=== PATIENT | male | born 1950 | race African-American/Black ===

== ENCOUNTER 2024-11-18 00:14 | Inpatient (IN) | payer OTHER ==
[2024-11-18] MEDS ORDERED: Ketorolac Tromethamine 30 MG (1 mL) VIAL ONE (00:57)
[2024-11-18] MEDS ORDERED: Acetaminophen 500 MG TAB ONE (00:57)
[2024-11-18 01:06] LABS: #Basophils 0.03 10x3/uL (0.0-0.2); #Eosinophils 0.23 10x3/uL (0.0-0.5); #Monocytes 0.63 10x3/uL (0.0-1.1); #Neutrophils 1.76 10x3/uL (1.5-8.4); %Basophils 0.6 % (0.0-2.0); %Eosinophils 4.6 % (0.0-6.0); %Lymphocytes 46.3 % (18.0-47.0); %Monocytes 12.7 % (0.0-10.0); %Neutrophils 35.6 % (40.0-75.0); Hematocrit 31.7 % (38.8-50.0); Hemoglobin 10.3 g/dL (13.5-17.5); Mean Corpuscular Hemoglobin 32.1 pg (27.0-33.0); Mean Corpuscular Volume 98.8 fL (81.2-95.1); Platelet Count 183 10x3/uL (150-450); Red Blood Cell (RBC) Count 3.21 10x6/uL (4.32-5.72); White Blood Cell (WBC) Count 4.95 10x3/uL (3.5-10.5)
[2024-11-18 01:30] LABS: ALT (SGPT) 20 U/L (Less than 45); AST (SGOT) 31 U/L (11-34); Albumin 4.8 g/dL (3.1-4.5); Alkaline Phosphatase 43 U/L (40-110); Anion Gap 19 mmol/L (10-20); BUN (Urea Nitrogen) 15 mg/dL (8.4-25.7); Bilirubin, Total 0.5 mg/dL (0.3-1.2); Calc. Creatinine Clearance 0 mL/min (70-130); Calcium 9.4 mg/dL (7.8-10.44); Carbon Dioxide 24 mmol/L (23-31); Chloride 106 mmol/L (98-107); Globulin 2.3 g/dL (2.4-3.5); Glucose 102 mg/dL (83-110); Potassium 4.0 mmol/L (3.5-5.1); Sodium 145 mmol/L (136-145)
[2024-11-18 01:36] LABS: Troponin I Less than 0.010 ng/mL (< 0.028)
[2024-11-18] MEDS ORDERED: hydrALAZINE 20 MG/ML VIAL ONE ×2 (02:19→02:57)
[2024-11-18 04:42] VITALS: BMI 25.5
[2024-11-18] MEDS ORDERED: Nitroglycerin 0.4 MG TAB (25 Tab Bottle) SL PRN (05:38)
[2024-11-18] MEDS ORDERED: hydrALAZINE 20 MG/ML VIAL SLOW IVP PRN ×2 (06:03→10:34)
[2024-11-18 06:32] LABS: Troponin I 0.011 ng/mL (< 0.028)
[2024-11-18] MEDS: Aspirin 325 MG TAB PO SCH (07:29)
[2024-11-18 09:32] LABS: Troponin I Less than 0.010 ng/mL (< 0.028)
[2024-11-18] MEDS: Ezetimibe 10 MG TAB PO SCH (09:52)
[2024-11-18] MEDS: Ferrous Gluconate 324 MG TAB PO SCH (09:52)
[2024-11-18] MEDS: Carvedilol 25 MG TAB PO SCH (09:52)
[2024-11-18] MEDS: Enoxaparin 40 MG (0.4 mL) SYRINGE SC SCH (09:52)
[2024-11-18] MEDS: Rosuvastatin 20 MG TAB PO SCH (20:51)
[2024-11-18] MEDS: Lactulose 20 GM (30 mL) UDCUP PO SCH (21:54)
[2024-11-19 01:11] LABS: #Basophils 0.04 10x3/uL (0.0-0.2); #Eosinophils 0.33 10x3/uL (0.0-0.5); #Monocytes 0.79 10x3/uL (0.0-1.1); #Neutrophils 1.70 10x3/uL (1.5-8.4); %Basophils 0.7 % (0.0-2.0); %Eosinophils 5.6 % (0.0-6.0); %Lymphocytes 51.4 % (18.0-47.0); %Monocytes 13.4 % (0.0-10.0); %Neutrophils 28.7 % (40.0-75.0); Hematocrit 32.8 % (38.8-50.0); Hemoglobin 10.5 g/dL (13.5-17.5); Mean Corpuscular Hemoglobin 32.0 pg (27.0-33.0); Mean Corpuscular Volume 100.0 fL (81.2-95.1); Platelet Count 197 10x3/uL (150-450); Red Blood Cell (RBC) Count 3.28 10x6/uL (4.32-5.72); White Blood Cell (WBC) Count 5.90 10x3/uL (3.5-10.5)
[2024-11-19 01:24] LABS: ALT (SGPT) 20 U/L (Less than 45); AST (SGOT) 30 U/L (11-34); Albumin 4.4 g/dL (3.1-4.5); Alkaline Phosphatase 37 U/L (40-110); Anion Gap 19 mmol/L (10-20); BUN (Urea Nitrogen) 13 mg/dL (8.4-25.7); Bilirubin, Total 0.5 mg/dL (0.3-1.2); Calc. Creatinine Clearance 63 mL/min (70-130); Calcium 9.3 mg/dL (7.8-10.44); Carbon Dioxide 21 mmol/L (23-31); Chloride 106 mmol/L (98-107); Globulin 2.3 g/dL (2.4-3.5); Glucose 138 mg/dL (83-110); Magnesium 2.1 mg/dL (1.6-2.6); Potassium 4.4 mmol/L (3.5-5.1); Sodium 142 mmol/L (136-145)
[2024-11-19 01:39] LABS: Troponin I Less than 0.010 ng/mL (< 0.028)
[2024-11-19 01:39] LABS: Cardiac Risk 3.0 (Less than 4.5); Cholesterol 140.0 mg/dl (< 200 Desired); HDL Cholesterol 47.0 mg/dL (>60 Neg Risk); LDL Cholesterol, Calculated 77.0 mg/dL; Triglycerides 79.0 mg/dL (Less than 150)
[2024-11-19] MEDS ORDERED: Gabapentin 300 MG CAP PO PRN (08:36)
[2024-11-19] MEDS: Finasteride 5 MG TAB PO SCH (10:06)
[2024-11-19] MEDS: Aspirin Chewable 81 MG TAB PO SCH (10:06)
[2024-11-19] MEDS: Sertraline 25 MG TAB PO SCH (10:08)
[2024-11-19] MEDS: Lactulose 20 GM (30 mL) UDCUP PO SCH (10:10)
[2024-11-19] MEDS: Lisinopril 5 MG TAB PO SCH (14:02)
[2024-11-20] MEDS: Lisinopril 5 MG TAB PO SCH (08:45)
[2024-11-20 12:29] VITALS: BP 139/86; TEMP 98
== END 2024-11-20 12:29 | disposition home or self-care (01) | DRG 305 ==
LOC: CSHERS 00:14 → CSHTELE 03:17 → OBSVTOIN 11-20 08:30
PROVIDERS: ADMIT Hospitalist; ATTEND Hospitalist
DX: I16.0 Hypertensive urgency (principal); E78.5 Hyperlipidemia, unspecified; N40.0 Benign prostatic hyperplasia without lower urinary tract symptoms; I25.10 Atherosclerotic heart disease of native coronary artery without angina pectoris; R55 Syncope and collapse; Z95.818 Presence of other cardiac implants and grafts
CPT/HCPCS: 36415; 36416; 70450; 70496; 70498; 71045; 71260; 80053; 80061; 83735; 84484; 85025; 93005; 93306; 96372; 96374; G0378; J0360; J1650; J1885